=== PATIENT | female | born 1935 | race Caucasian/White ===

== ENCOUNTER 2018-03-09 09:17 | Emergency (ER) | payer OTHER ==
[~2018-03-09] VITALS: Ht 149.9 cm; Wt 61.2 kg
--- NOTE | 2018-03-09 09:54 | ED CARDIAC/CP/PALPITATIONS ---
History of Present Illness General Chief Complaint: Chest Pain Stated Complaint: CHEST PAIN, DISCHARGED FROM [facility] FOR SAME Source: patient Exam Limitations: dementia Vital Signs & Intake/Output Vital Signs & Intake/Output Vital Signs Date Time Temp Pulse Resp B/P B/P Pulse O2 O2 Flow FiO2 Mean Ox Delivery Rate 03/09 1409 98.1 60 20 120/58 97 Room Air 03/09 1136 98.2 60 20 136/60 97 Room Air 03/09 0928 97.8 72 20 124/98 97 Room Air Allergies Coded Allergies: No Known Drug Allergies (Intermediate, NONE 03/09/18) Reconcile Medications Aspirin (Aspirin*) 81 MG TAB.CHEW 1 TAB PO DAILY PRN HEART (Reported) Atorvastatin Calcium 10 MG TABLET 1 TAB PO DAILY CHOLESTEROL (Reported) Diltiazem HCl (Diltiazem 24HR ER) 120 MG CAP.ER.24H 1 CAP PO DAILY HEART ( Reported) Donepezil HCl 10 MG TABLET 1 TAB PO QPM DEMENTIA (Reported) Melatonin 3 MG TABLET 1 TAB PO QPM PRN SLEEP (Reported) Memantine HCl (Namenda XR) 28 MG CAP.SPR.24 1 CAP PO DAILY DEMENTIA (Reported ) Metoprolol Succinate 25 MG TAB 0.5 TAB PO DAILY HEART (Reported) Triage Note: C/O CHEST PRESSURE SINCE THIS AM. DISCHARGED FROM [facility] ON 03/04 FOR SAME. SXS. DENIES SOB, NAUSEA OR DIZZINESS. Triage Nurses Notes Reviewed? yes HPI: Patient presents for evaluation of chest discomfort beginning about one hour prior to arrival. Patient states the pain has fortunately resolved. She was admitted to the [facility] over the past few days for episode of similar chest discomfort. The patient cannot describe the characteristics of the pain but states that it was constant and waxed and waned in intensity. There was no change with deep inspiration or movement. There is no associated diaphoresis or dyspnea. Past History Travel History Traveled to [place] past 21 day No Medical History Any Pertinent Medical History? see below for history Neurological: dementia EENT: NONE Cardiovascular: heart valve narrowing Respiratory: NONE Gastrointestinal: NONE Hepatic: NONE Renal: NONE Psychiatric: NONE Endocrine: NONE Pneumonia Vaccine: 08/10/08 Influenza Vaccine: 08/10/08 Surgical History Surgical History: non-contributory Psychosocial History Who do you live with Patient/Self What is your primary language Mongolian Tobacco Use: Never used ETOH Use: denies use Family History Hx Contributory? No Review of Systems Review of Systems Constitutional: Reports: no symptoms. EENTM: Reports: no symptoms. Respiratory: Reports: no symptoms. Cardiovascular: Reports: chest pain. GI: Reports: no symptoms. Genitourinary: Reports: no symptoms. Musculoskeletal: Reports: no symptoms. Skin: Reports: no symptoms. Neurological/Psychological: Reports: no symptoms. Hematologic/Endocrine: Reports: no symptoms. Immunologic/Allergic: Reports: no symptoms. All Other Systems: Reviewed and Negative Physical Exam Physical Exam Cardiovascular: SEE BELOW Comments: Gen.: Well-nourished, well-developed, no acute respiratory distress. Head: Normocephalic, atraumatic. Eyes: Normal inspection bilaterally Ears: Normal inspection bilaterally Nose: Normal inspection Throat/mouth : Moist mucosa Neck: Supple, full range of motion, no goiter Heart: Regular rate and rhythm, systolic murmur heard best at the right upper sternal border (murmur diminishes with deep inspiration) Lungs: Clear to auscultation bilaterally with normal air entry Chest: Nontender Back: Normal range of motion Abdomen: Soft, nontender, nondistended, normal bowel sounds Extremities: Normal range of motion grossly, equal radial pulses, no cyanosis clubbing or edema, calves nontender Neurologic: Cranial nerves grossly intact, speech is clear Skin: warm and dry Psychiatric: Calm, cooperative, no apparent delusions or hallucinations Core Measures ACS in differential dx? No CVA/TIA Diagnosis No Sepsis Present: No Sepsis Focused Exam Completed? No Progress Differential Diagnosis: AMI, aortic dissection, atrial fibrillation, CHF/pulm edema, musculoskeletal pain, myocarditis, pericarditis, PSVT, PVCs/PACs, V-fib/V -Tach, WPW syndrome Plan of Care: Orders Procedure Date/time Status TROPONIN LEVEL 03/09 1400 Complete EKG 03/09 1400 Active Telemetry/Roofing Layer 03/09 09 Active TROPONIN LEVEL 03/09 0957 Complete MAGNESIUM 03/09 09 Complete CBC WITHOUT DIFFERENTIAL 03/09 09 Complete BASIC METABOLIC PANEL 03/09 09 Complete EKG 03/09 09 Active Laboratory Tests 03/09/18 1405: Troponin I < 0.01 03/09/18 1015: Anion Gap 12, Estimated GFR > 60, BUN/Creatinine Ratio 31.4 H, Glucose 100 H, Calcium 9.4, Magnesium 2.2, Troponin I < 0.01, CBC w Diff NO MAN DIFF REQ, RBC 4.78, MCV 87.2, MCH 28.1, MCHC 32.2 L, RDW 14.0, MPV 8.5, Gran % 68.3, Lymphocytes % 22.2, Monocytes % 7.4, Eosinophils % 1.7, Basophils % 0.4, Absolute Granulocytes 4.1, Absolute Lymphocytes 1.3, Absolute Monocytes 0.4, Absolute Eosinophils 0.1, Absolute Basophils 0 Initial ED EKG: NSR, LVH Prior EKG: unchanged Repeat EKG: unchanged Comments: 03/09/2018 9:53:09 AM patient's case discussed with her derrick worker well service Dr. SHERIDAN , who feels that other than the basic chest pain evaluation with a repeat EKG and troponin, patient can be discharged with follow-up in his office. He feels that her symptoms are due to a combination of valve disease (he will be recommending a valve repair) along with anxiety. Departure Departure Disposition: HOME OR SELF CARE Condition: Stable Clinical Impression Primary Impression: Atypical chest pain Referrals: Juventino Le MD (PCP/Family) Additional Instructions: Follow-up with your derrick worker well service on Monday for reevaluation. Return if any concerns or sudden worsening. Please note that there might be incidental findings in your evaluation that are unrelated to the current emergency department visit. Please notify your primary care doctor about this emergency department visit in order to obtain and review all of the testing performed so that these incidental findings can be monitored as needed. If you had an x-ray performed, please understand that some fractures may not be seen on the initial set of x-rays. If your symptoms persist you might need a repeat set of x-rays to check for such a fracture. If you had a laceration evaluated, please understand that foreign bodies such as glass or wood may not be visible to the naked eye or on plain x-rays. If the wound becomes red, swollen, increasingly more painful or if there is any drainage from the wound, please have it reevaluated by a physician for the possibility of a retained foreign body. If you're unable to follow up as outlined in the discharge instructions please return to the emergency department. Thank you for choosing the [facility] Emergency Department for your care. It was a pleasure to serve you today. Kwan Qiu M.D. [facility] Departure Forms: Customer Survey General Discharge Information Critical Care Note Critical Care Note Critical Care Time: non-applicable
[2018-03-09 10:20] LABS: ABSOLUTE BASOPHIL COUNT 0 /CUMM (0.0-0.2); ABSOLUTE EOSINOPHIL COUNT 0.1 /CUMM (0.0-0.7); ABSOLUTE GRANULOCYTE CT 4.1 /CUMM (1.4-6.5); ABSOLUTE LYMPH COUNT 1.3 /CUMM (1.2-3.4); ABSOLUTE MONOCYTE COUNT 0.4 /CUMM (0.10-0.60); BASOPHIL % 0.4 % (0.0-2.0); EOSINOPHIL % 1.7 % (0-5); GRANULOCYTE % 68.3 % (42.2-75.2); HEMATOCRIT 41.7 % (37-47); MEAN CORPUSCULAR HGB 28.1 PG (27.0-31.0); MEAN CORPUSCULAR HGB CONC 32.2 G/DL (33.0-37.0); MEAN CORPUSCULAR VOLUME 87.2 FL (81.0-99.0); MEAN PLATELET VOLUME 8.5 FL (7.4-10.4); PLATELET COUNT 223 /CUMM (130-400); RED BLOOD CELL CT 4.78 /CUMM (4.20-5.40)
--- NOTE | 2018-03-09 10:25 | RADIOLOGY REPORT ---
EXAMINATION: XR PORTABLE CHEST CLINICAL INFORMATION: Chest discomfort. COMPARISON: Chest radiograph 12/20/2007. TECHNIQUE: Portable frontal view of the chest was obtained. FINDINGS: There is elevation of the right hemidiaphragm. There is mild bibasilar atelectasis. There is no dense consolidation, edema, effusion, or pneumothorax. The heart is normal in size. The osseous structures are grossly intact. Numerous surgical clips are seen in the right axilla and breast. IMPRESSION: No active disease in the chest.
[2018-03-09] MEDS ORDERED: METOPROLOL SUCC25 M1 PO (10:49)
[2018-03-09] MEDS ORDERED: ATORVASTATIN CA10 M1 PO (10:50)
[2018-03-09] MEDS ORDERED: DILTIAZEM 24HR120 MG PO (10:50)
[2018-03-09] MEDS ORDERED: DONEPEZIL HCL10 M1 PO (10:50)
[2018-03-09] MEDS ORDERED: ASPIRIN81 M4 PO (10:51)
[2018-03-09] MEDS ORDERED: NAMENDA XR28 M1 PO (10:51)
[2018-03-09] MEDS ORDERED: MELATONIN3 M4 PO (10:52)
[2018-03-09 14:09] VITALS: BP 120/58
== END 2018-03-09 15:08 ==
LOC: ERH 09:17
PROVIDERS: Emergency Medicine
DX: R07.89 Other chest pain (principal)
CPT/HCPCS: 71045; 93005; 93010

== ENCOUNTER 2018-04-12 14:21 | Observation (INO) | payer OTHER ==
[~2018-04-12] VITALS: Ht 149.9 cm; Wt 56.7 kg
[~2018-04-12 14:21] MED LIST: ASPIRIN81 M4 PO; ATORVASTATIN CA10 M1 PO; DILTIAZEM 24HR120 MG PO; DONEPEZIL HCL10 M1 PO; MELATONIN3 M4 PO; METOPROLOL SUCC25 M1 PO; NAMENDA XR28 M1 PO
[2018-04-12 14:53] LABS: ABSOLUTE BASOPHIL COUNT 0 /CUMM (0.0-0.2); ABSOLUTE EOSINOPHIL COUNT 0.1 /CUMM (0.0-0.7); ABSOLUTE GRANULOCYTE CT 5.5 /CUMM (1.4-6.5); ABSOLUTE LYMPH COUNT 1.1 /CUMM (1.2-3.4); ABSOLUTE MONOCYTE COUNT 0.5 /CUMM (0.10-0.60); BASOPHIL % 0.3 % (0.0-2.0); EOSINOPHIL % 0.7 % (0-5); GRANULOCYTE % 76.5 % (42.2-75.2); HEMATOCRIT 39.9 % (37-47); MEAN CORPUSCULAR HGB 28.5 PG (27.0-31.0); MEAN CORPUSCULAR HGB CONC 32.9 G/DL (33.0-37.0); MEAN CORPUSCULAR VOLUME 86.4 FL (81.0-99.0); MEAN PLATELET VOLUME 8.4 FL (7.4-10.4); PLATELET COUNT 226 /CUMM (130-400); RBC DISTRIBUTION WIDTH 14.9 % (11.5-14.5); RED BLOOD CELL CT 4.61 /CUMM (4.20-5.40); WHITE BLOOD CELL COUNT 7.2 /CUMM (4.8-10.8)
[2018-04-12 15:02] LABS: PT 11.7 SEC (9.4-12.5); PTT 30 SEC (25-37)
--- NOTE | 2018-04-12 15:12 | CT SCAN REPORT ---
EXAMINATION: CT HEAD WITHOUT CONTRAST CLINICAL INFORMATION: Rule out ICH. Left-sided facial droop. COMPARISON: None. TECHNIQUE: Contiguous axial imaging was performed from the skull base to vertex without intravenous administration of contrast. DLP: 12 mGy-cm. FINDINGS: There is no intracranial hemorrhage, large infarction, or mass lesion. There is no dense vessel sign or obscuration of the basal ganglia or insular ribbon. There is no extra-axial collection. There is moderate scattered hypoattenuation in the bilateral cerebral white matter, which is nonspecific but likely reflects small vessel disease. There is mild diffuse brain parenchymal volume loss with prominence of the ventricles and sulci. The visualized paranasal sinuses are clear. The mastoids and middle ear cavities are clear. There are atherosclerotic calcification of the carotid siphons and vertebral arteries. IMPRESSION: - No CT evidence of acute large territory infarction or hemorrhage. - Moderate small vessel ischemic changes and mild diffuse brain parenchymal volume loss.
--- NOTE | 2018-04-12 15:51 | ED GENERAL ADULT ---
See Addendum History of Present Illness General Chief Complaint: Dizziness Stated Complaint: "CHEST FEELS HEAVY" DIZZINESS & CONFUSED Source: patient Exam Limitations: no limitations Vital Signs & Intake/Output Vital Signs & Intake/Output Vital Signs Date Time Temp Pulse Resp B/P B/P Pulse O2 O2 Flow FiO2 Mean Ox Delivery Rate 04/13 0931 96.7 53 18 140/62 98 Room Air 04/13 0735 98.3 56 18 165/72 96 Room Air 04/13 0008 97.9 56 18 141/64 96 04/12 1702 61 20 155/65 99 Room Air 04/12 1539 Room Air 04/12 1504 73 20 188/73 98 Room Air / 1439 98.7 67 20 144/74 97 Room Air ED Intake and Output 04/13 0000 04/12 1200 Intake Total Output Total Balance Patient 125 lb Weight Weight Reported by Patient Measurement Method Allergies Coded Allergies: No Known Drug Allergies (Intermediate, NONE 03/09/18) Reconcile Medications Aspirin (Aspirin*) 81 MG TAB.CHEW 1 TAB PO DAILY PRN HEART (Reported) Atorvastatin Calcium 10 MG TABLET 1 TAB PO DAILY CHOLESTEROL (Reported) Diltiazem HCl (Diltiazem 24HR ER) 120 MG CAP.ER.24H 1 CAP PO DAILY HEART ( Reported) Donepezil HCl 10 MG TABLET 1 TAB PO QPM DEMENTIA (Reported) Melatonin 3 MG TABLET 1 TAB PO QPM PRN SLEEP (Reported) Memantine HCl (Namenda XR) 28 MG CAP.SPR.24 1 CAP PO DAILY DEMENTIA (Reported ) Metoprolol Succinate 25 MG TAB 0.5 TAB PO DAILY HEART (Reported) Triage Note: PT TO ED C/O HEAVY FEELING TO CHEST SINCE THIS AM. PT NOTED WITH LEFT SIDED FACIAL DROOP. C/O FEELING DIZZY AND CONFUSED. MARTHA SINCLAIR IN EKG [place] FOR EVAL. Triage Nurses Notes Reviewed? yes Onset: Gradual Duration: hour(s): Timing: single episode today Injury Environment: home Severity: moderate HPI: 82YO female with hx of dementia presents to ED complaining of "chest discomfort " with dizziness and weakness at home. HPI is limited due to patient's dementia. Patient's brother states that visiting nurse was visiting the patient and her home earlier today when patient began complaining of dizziness, weakness , him for. Brother states that patient often complains of chest discomfort which her cream maker has told them is related to her aortic stenosis. Patient has had valvular disease assessed with cream maker and was told that they do not plan on performing any surgery. Brother states that the chest discomfort she is complaining of a similar to previous episodes. They deny fall, head trauma, vomiting, syncope. Patient currently denies dizziness and chest pain. (Meeta Alfredo) Past History Travel History Traveled to [place] past 21 day No Medical History Any Pertinent Medical History? see below for history Neurological: dementia EENT: NONE Cardiovascular: heart valve narrowing Respiratory: NONE Gastrointestinal: NONE Hepatic: NONE Renal: NONE Musculoskeletal: NONE Psychiatric: NONE Endocrine: NONE Surgical History Surgical History: non-contributory Psychosocial History Who do you live with Patient/Self What is your primary language Yi Tobacco Use: Quit >30 days ago ETOH Use: denies use Illicit Drug Use: denies illicit drug use Family History Hx Contributory? No (Meeta Alfredo) Review of Systems Review of Systems Constitutional: Reports: see HPI. EENTM: Reports: no symptoms. Respiratory: Reports: no symptoms. Cardiovascular: Reports: see HPI. GI: Reports: no symptoms. Genitourinary: Reports: no symptoms. Musculoskeletal: Reports: no symptoms. Skin: Reports: no symptoms. Neurological/Psychological: Reports: see HPI. Hematologic/Endocrine: Reports: no symptoms. Immunologic/Allergic: Reports: no symptoms. All Other Systems: Reviewed and Negative (Meeta Alfredo) Physical Exam Physical Exam General Appearance: well developed/nourished, no apparent distress, alert, awake Head: atraumatic, normal appearance Eyes: Bilateral: normal appearance. Ears, Nose, Throat: hearing grossly normal Neck: normal inspection, supple, full range of motion Respiratory: no respiratory distress, corse breath sounds bilateral lower lobes Cardiovascular: regular rate/rhythm, normal peripheral pulses Peripheral Pulses: 2+ radial (R), 2+ radial (L) Gastrointestinal: normal bowel sounds, soft, non-tender, no organomegaly Back: normal inspection, normal range of motion Extremities: normal inspection, normal range of motion Neurologic/Psych: awake, alert, oriented x 3, left sided facial droop involving forehead, otherwise neurologically intact, strength 5/5 equal bilateral upper extremities Skin: intact, normal color, warm/dry Core Measures ACS in differential dx? Yes CVA/TIA Diagnosis: No Sepsis Present: No Sepsis Focused Exam Completed? No (Danisha THOMAS,Meeta Álvarez) Progress Differential Diagnoses I considered the following diagnoses in my evaluation of the patient: [Acute coronary syndrome, aortic stenosis, CVA/TIA, Qiu's palsy, benign positional vertigo, ICH, electrolyte abnormality, anemia] Plan of Care: Orders Procedure Date/time Status Intake & Output 04/13 0000 Active Regular Diet 04/12 D Active PT Evaluate & Treat 04/12 1942 Active CASE MANAGEMENT CONSULT 04/12 1942 Active OXYGEN SETUP (GEN) 04/12 1914 Active Saline Lock 04/[address] in observation 04/12 1914 Active Patient Data 04/12 1914 Active Vital Signs 04/12 1914 Active Activity/Ambulation 04/12 1914 Active Code Status 04/12 1914 Active TROPONIN LEVEL 04/12 1822 Complete EKG 04/12 1822 Active FingerStick- Glucose 04/12 1527 Active NIH Stroke Scale 04/12 1500 Active TROPONIN LEVEL 04/12 1437 Complete PARTIAL THROMBOPLASTIN TIME 04/12 143 Complete PROTHROMBIN TIME 04/12 1437 Complete COMPREHENSIVE METABOLIC PANEL 04/12 1437 Complete CBC WITHOUT DIFFERENTIAL 04/12 1437 Complete EKG 04/12 1429 Active Laboratory Tests 04/12/18 1839: Troponin I < 0.01 04/12/18 1445: Anion Gap 12, Estimated GFR > 60, BUN/Creatinine Ratio 28.6 H, Glucose 119 H, Calcium 9.3, Total Bilirubin 0.5, AST 24, ALT 23, Alkaline Phosphatase 65, Troponin I < 0.01, Total Protein 6.7, Albumin 3.9, Globulin 2.8, Albumin/ Globulin Ratio 1.4, PT 11.7, INR 1.07, APTT 30, CBC w Diff NO MAN DIFF REQ, RBC 4.61, MCV 86.4, MCH 28.5, MCHC 32.9 L, RDW 14.9 H, MPV 8.4, Gran % 76.5 H, Lymphocytes % 16.0 L, Monocytes % 6.5, Eosinophils % 0.7, Basophils % 0.3, Absolute Granulocytes 5.5, Absolute Lymphocytes 1.1 L, Absolute Monocytes 0.5, Absolute Eosinophils 0.1, Absolute Basophils 0 When patient arrives in emergency department it was noted that she had left facial droop involving the eyebrow. I saw the patient in triage at this time. Patient states she did not know she had a facial droop. For this reason we sent her to head CT scan. Head CT scan is within normal limits. 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 This and this finding was suspicion for acute intracranial pathology/CVA. Patient's EKG is stable compared to previous studies, troponin enzymes negative. Patient's labs are within normal limits. She is ambulatory here with a steady gait and without dizziness. She has no orthostatic hypotension. Others are concerned because she lives at home alone, he does not feel it is safe for her to go home given her symptoms from earlier today. Patient also has dementia at baseline and gives a poor history. For this reason patient to stay in emergency department for serial EKGs, troponins, physical therapy evaluation tomorrow. Discussed with case management who recommended ED observation. The patient was signed out to Dr. Finn for ED obs. Diagnostic Imaging: Viewed by Me: Radiology Read, CT Scan. Discussed w/RAD: Radiology Read, CT Scan. Radiology Impression: PATIENT: MIMI RICHARDSON PRESENT AGE: 82 PATIENT ACCOUNT NO: [id number] : 34 LOCATION: [facility] ORDERING PHYSICIAN: Meeta THOMAS SERVICE DATE: 04/12/18 EXAM TYPE: CAT - CT HEAD WO IV CONTRAST EXAMINATION: CT HEAD WITHOUT CONTRAST CLINICAL INFORMATION: Rule out ICH. Left-sided facial droop. COMPARISON: None. TECHNIQUE: Contiguous axial imaging was performed from the skull base to vertex without intravenous administration of contrast. DLP: 12 mGy-cm. FINDINGS: There is no intracranial hemorrhage, large infarction, or mass lesion. There is no dense vessel sign or obscuration of the basal ganglia or insular ribbon. There is no extra-axial collection. There is moderate scattered hypoattenuation in the bilateral cerebral white matter, which is nonspecific but likely reflects small vessel disease. There is mild diffuse brain parenchymal volume loss with prominence of the ventricles and sulci. The visualized paranasal sinuses are clear. The mastoids and middle ear cavities are clear. There are atherosclerotic calcification of the carotid siphons and vertebral arteries. IMPRESSION: - No CT evidence of acute large territory infarction or hemorrhage. - Moderate small vessel ischemic changes and mild diffuse brain parenchymal volume loss. DICTATED BY: Ricardo Rodriguez MD DATE/TIME DICTATED:04/12/181505 SKY CAP: JUDY DATE/TIME TRANSCRIBED:04/12/181505 CONFIDENTIAL, DO NOT COPY WITHOUT APPROPRIATE AUTHORIZATION. <Electronically signed in Other Vendor System> SIGNED BY: Ricardo Rodriguez MD 04/12/18 1512 CXR Impression: PATIENT: MIMI RICHARDSON PRESENT AGE: 82 PATIENT ACCOUNT NO: [id number] : 34 LOCATION: [facility] ORDERING PHYSICIAN: Meeta THOMAS SERVICE DATE: 04/12/18 EXAM TYPE: RAD - XRY-CHEST XRAY, TWO VIEWS EXAMINATION: XR CHEST CLINICAL INFORMATION: Chest pain. COMPARISON: Chest x-ray 03/09/2018 TECHNIQUE: 2 views of the chest were obtained. FINDINGS: Lungs are clear. No pulmonary vascular congestion. There is no pleural effusion. The heart size is normal. The cardiac and mediastinal contours are normal. There are calcifications of the thoracic aorta. There are multilevel degenerative changes of dorsal spine. There are surgical clips in the right axilla. IMPRESSION: No acute abnormality of the chest. DICTATED BY: Renny Dewitt MD DATE/TIME DICTATED:04/12/181742 SKY CAP:JUDY DATE/ TIME TRANSCRIBED:04/12/181742 CONFIDENTIAL, DO NOT COPY WITHOUT APPROPRIATE AUTHORIZATION. <Electronically signed in Other Vendor System> SIGNED BY: Renny Dewitt MD 04/12/181747 Initial ED EKG: sinus rhythm @59bpm, PACs, nonspecific ST changes Prior EKG: unchanged (03/09/18) Hand-Off Endorsed To: Camilo Finn MD Endorsed Time: 1940 Pending: EKG, labs (ED obs) (Danisha THOMAS,Meeta Álvarez) Hand-Off Endorsed To: Kwan Qiu MD Endorsed Time: 699 Pending: other (case mgmt, pt) (Camilo Finn MD) Comments: 04/13/2018 9:16:39 AM patient signed out to me by Dr. Finn at shift oil change technician. Mimi is currently without complaint and is eating breakfast. I have discussed her case with case management regarding the possibility of homecare enhancement. Disposition is pending. 04/13/2018 10:05:29 AM I have reevaluated Mimi. She has no complaint at this time. She is oriented to person place and time. I suspect she is oriented to the current mooner although couldn't state his name specifically. She states she lives in her own home by herself but is planning on converting over to assisted living with the help of her brother. She states her brother should be available to pick her up. Although the patient has a history of dementia and is currently taking Namenda, I feel she is competent for medical decision making at this time. She has declined evaluation by case management for the possibility of a home health aide. Overall I feel she is stable for discharge. She has a primary care physician with whom she can follow -up. (Uyen ERICKSON,Kwan White) Departure Departure Condition: Stable Clinical Impression Primary Impression: Chest pain Qualifiers: Chest pain type: unspecified Qualified Code: R07.9 - Chest pain, unspecified Secondary Impressions: Dizziness, Weakness Referrals: Juventino Le MD (PCP/Family) Departure Forms: Customer Survey General Discharge Information Observation Note Spoke With: Camilo Finn MD Physician Advisor Notified: KWAN SALAZAR DO Place Patient In: ED Observation Rationale for Observation: My rational for observation is as follows [patient has chest pain requiring serial EKGs, troponins, telemetry monitoring, weakness and dizziness requiring physical therapy evaluation, premature discharge medically unsafe.]. (Danisha THOMAS,Meeta Álvarez) PA/INFUSION THERAPY NURSE Co-Sign Statement Statement: ED Attending supervision documentation- x I saw and evaluated the patient. I have also reviewed all the pertinent lab results and diagnostic results. I agree with the findings and the plan of care as documented in the PA's/INFUSION THERAPY NURSE's documentation. [] I have reviewed the ED Record and agree with the PA's/INFUSION THERAPY NURSE's documentation. [] Additions or exceptions (if any) to the PAs/INFUSION THERAPY NURSE's note and plan are summarized below: [] (Camilo Finn MD) Departure Disposition: HOME OR SELF CARE Additional Instructions: Your emergency department evaluation does not reveal any significant findings. Follow-up with your primary care physician on Monday for reevaluation. Return if any concerns or sudden worsening. Please note that there might be incidental findings in your evaluation that are unrelated to the current emergency department visit. Please notify your primary care doctor about this emergency department visit in order to obtain and review all of the testing performed so that these incidental findings can be monitored as needed. If you had an x-ray performed, please understand that some fractures or other findings may not be seen on the initial set of x-rays. If your symptoms persist you might need a repeat set of x-rays to check for such a fracture. If you had a laceration evaluated, please understand that foreign bodies such as glass or wood may not be visible to the naked eye or on plain x-rays. If the wound becomes red, swollen, increasingly more painful or if there is any drainage from the wound, please have it reevaluated by a physician for the possibility of a retained foreign body. If you're unable to follow up as outlined in the discharge instructions please return to the emergency department. Thank you for choosing the [facility] Emergency Department for your care. It was a pleasure to serve you today. Kwan Qiu M.D. [facility] (Uyen ERICKSON,Kwan White) Critical Care Note Critical Care Note Critical Care Time: non-applicable (Danisha THOMAS,Meeta Álvarez) ED Attending Observation Initial Observation Note: I have seen and personally examined MIMI RICHARDSON on 04/12/18 at 1914. I agree with the current emergency department documentation. The disposition (admission or discharge) is uncertain at this time, she needs a period of observation for the following reason(s): chest pain, dementia The ED Nurse caring for this patient has been personally informed as to what the patient is being observed for. (Huma ERICKSON,Camilo)
--- NOTE | 2018-04-12 17:48 | RADIOLOGY REPORT ---
EXAMINATION: XR CHEST CLINICAL INFORMATION: Chest pain. COMPARISON: Chest x-ray 03/09/2018 TECHNIQUE: 2 views of the chest were obtained. FINDINGS: Lungs are clear. No pulmonary vascular congestion. There is no pleural effusion. The heart size is normal. The cardiac and mediastinal contours are normal. There are calcifications of the thoracic aorta. There are multilevel degenerative changes of dorsal spine. There are surgical clips in the right axilla. IMPRESSION: No acute abnormality of the chest.
[2018-04-13 10:20] VITALS: BP 138/72
== END 2018-04-13 11:11 ==
LOC: ERH 14:21 → ERHI 19:14 → EDBEDREQ 19:58 → ERHI 04-13 11:11
PROVIDERS: Physician Assistant
DX: R07.9 Chest pain, unspecified (principal); R42 Dizziness and giddiness; Z79.82 Long term (current) use of aspirin; F03.90 Unspecified dementia, unspecified severity, without behavioral disturbance, psychotic disturbance, mood disturbance, and anxiety; Z87.891 Personal history of nicotine dependence; R53.1 Weakness
CPT/HCPCS: 6090; 71046; 93005; 93010; 97116-GP; 97161-GP; G0378; G8978-GP; G8979-GP; G8980-GP